=== PATIENT | male | born 1990 | race African-American/Black ===

== ENCOUNTER 2019-11-04 20:30 | Emergency (ER) | payer OTHER ==
[~2019-11-04] VITALS: Ht 175.3 cm; Wt 90.7 kg
[~2019-11-04 20:30] MED LIST: FLEXERIL PO; MOBIC15 MG PO; PERCOCET PO; ZOFRAN ODT4 MG PO
[2019-11-04] MEDS ORDERED: IBUPROFEN 600600 M1 PO (21:18)
[2019-11-04 21:44] VITALS: BP 125/73
== END 2019-11-04 21:48 | disposition home or self-care (01) ==
LOC: ER 20:30
DX: S16.1XXA Strain of muscle, fascia and tendon at neck level, initial encounter (principal); M54.6 Pain in thoracic spine; Z98.890 Other specified postprocedural states; V49.59XA Passenger injured in collision with other motor vehicles in traffic accident, initial encounter; Y93.89 Activity, other specified; Y92.488 Other paved roadways as the place of occurrence of the external cause; Y99.8 Other external cause status